=== PATIENT | female | born 1990 | race Caucasian/White ===

== ENCOUNTER 2021-08-11 23:08 | Emergency (ER) | payer MEDICAID ==
[~2021-08-11] VITALS: Ht 170.2 cm; Wt 81.6 kg
[2021-08-12] MEDS ORDERED: OXYCODONE/APAP 5-325 MG TABLET PO ONE (02:30)
[2021-08-12] MEDS ORDERED: CLINDAMYCIN PHOSPHATE IV 900 MG in IV DEXTROSE 5% 100 ML IV ONE (02:30)
[2021-08-12] MEDS ORDERED: OXYC-128 PO (02:33)
[2021-08-12] MEDS ORDERED: CLIN300C3 PO (02:33)
[2021-08-12] MEDS ORDERED: CLINDAMYCIN 900MG/D5W 100ML IVPB **ER PYXIS ONLY IJ ONE (02:44)
[2021-08-12] MEDS ORDERED: OXYCODONE/APAP 5-325 MG TABLET ONE (02:44)
[2021-08-12] MEDS ORDERED: CODE30TA PO (02:49)
[2021-08-12] MEDS ORDERED: IV NS 1000 ML 1,000 ML IV ONE (03:00)
[2021-08-12 03:37] VITALS: BP 118/75
--- NOTE | 2021-08-12 03:37 | NUR ---
Patient discharged to home in stable condition. Written and verbal after care instructions given. Patient verbalizes understanding of instructions. Stressed follow up or return to ER for worsening s/s.
== END 2021-08-12 03:37 | disposition home or self-care (01) ==
LOC: ER 23:12
DX: K04.7 Periapical abscess without sinus (principal); K08.89 Other specified disorders of teeth and supporting structures
CPT/HCPCS: 96365; 99284; J3490; A4663; J7030